=== PATIENT | female | born 1965 | race Caucasian/White ===

== ENCOUNTER → 2016-11-02 | Outpatient (CLI) | payer BC ==
[~2016-11-02] MED LIST: ASPIRIN E.C. 8181 MG PO; BRILINTA90 MG PO; DUO-KAPS1 CAP PO; FISH OIL 1000MG1 CAP PO; LIPITOR 10MG10 MG PO; LIPITOR20 MG PO; NORCO 325 MG-51 TAB PO
== END ==
LOC: MC.RAD 07:52
DX: Z12.31 Encounter for screening mammogram for malignant neoplasm of breast (principal); D24.2 Benign neoplasm of left breast; D24.1 Benign neoplasm of right breast

== ENCOUNTER 2017-03-15 08:13 | Day surgery (SDC) | payer BC ==
[2017-03-15] VITALS (345 sets, daily range): BP systolic 109–158; BP diastolic 66–91; PULSE 50–89; TEMP 97.9–98.4; O2SAT 94–100
[~2017-03-15] VITALS: Ht 154.9 cm; Wt 68.1 kg
[~2017-03-15 08:13] MED LIST changes: -ASPIRIN E.C. 8181 MG PO; -BRILINTA90 MG PO; -FISH OIL 1000MG1 CAP PO; -LIPITOR20 MG PO
[2017-03-15 08:49] LABS: HEMATOCRIT 41.3 % (37.0-47.0); HEMOGLOBIN 13.5 g/dl (12.5-16.0); MEAN CELL VOLUME 89 fl (80.0-100.0); MEAN CORPUSCULAR HEMOGLOBIN 29 pg (27.0-31.0); MEAN CORPUSCULAR HGB CONC 33 g/dl (33.0-37.0); MEAN PLATELET VOLUME 11.3 fl (7.4-10.4); PLATELET COUNT 247 K/mm3 (130-400); RED BLOOD COUNT 4.66 M/mm3 (4.10-5.30); REDCELL DISTRIBUTION WIDTH-CV 13.4 % (11.5-14.5); WHITE BLOOD COUNT 8.2 K/mm3 (4.8-10.8)
[2017-03-15 08:56] LABS: PROTHROMBIN TIME 10.8 SECONDS (9.7-12.8)
[2017-03-15] MEDS ORDERED: ASPIRIN E.C. 8181 MG PO (09:08)
[2017-03-15 09:13] LABS: CALCIUM 9.1 mg/dL (8.4-10.2); CREATININE, serum 0.57 mg/dL (0.52-1.25); POTASSIUM 4.1 mmol/L (3.4-5.0)
[2017-03-16] VITALS (173 sets, daily range): BP systolic 97–105; BP diastolic 53–57; PULSE 54–73; TEMP 97.8–98.1; O2SAT 95–100
[2017-03-16 06:03] LABS: HEMATOCRIT 38.7 % (37.0-47.0); HEMOGLOBIN 12.3 g/dl (12.5-16.0); MEAN CELL VOLUME 91 fl (80.0-100.0); MEAN CORPUSCULAR HEMOGLOBIN 29 pg (27.0-31.0); MEAN CORPUSCULAR HGB CONC 32 g/dl (33.0-37.0); MEAN PLATELET VOLUME 11.6 fl (7.4-10.4); PLATELET COUNT 206 K/mm3 (130-400); RED BLOOD COUNT 4.27 M/mm3 (4.10-5.30); REDCELL DISTRIBUTION WIDTH-CV 13.5 % (11.5-14.5); WHITE BLOOD COUNT 7.2 K/mm3 (4.8-10.8)
[2017-03-16 06:14] LABS: CREATININE, serum 0.63 mg/dL (0.52-1.25); POTASSIUM 4.3 mmol/L (3.4-5.0)
[2017-03-16 06:15] LABS: CALCIUM 8.8 mg/dL (8.4-10.2)
[2017-03-16] MEDS ORDERED: BRILINTA90 MG PO (11:45)
[2017-03-16] MEDS ORDERED: LIPITOR20 MG PO (11:46)
[2017-03-16] MEDS ORDERED: FISH OIL 1000MG1 CAP PO (11:52)
== END 2017-03-16 13:10 | disposition home or self-care (01) ==
LOC: COL.CAR 08:13 → IMCU 11:50 → COL.CAR 03-16 13:10
PROVIDERS: Internal Medicine Cardiovascular Disease; Internal Medicine Interventional Cardiology
DX: I25.10 Atherosclerotic heart disease of native coronary artery without angina pectoris (principal); I34.0 Nonrheumatic mitral (valve) insufficiency; R07.9 Chest pain, unspecified; R94.39 Abnormal result of other cardiovascular function study; R06.02 Shortness of breath
CPT/HCPCS: OP; C1725; C1769; C1874; C1887; C1894; C9600; J0583; J1644; J2250; J3010; Q9967

== ENCOUNTER 2017-05-24 15:59 | Outpatient (RCR) | payer BC ==
[~2017-05-24 15:59] MED LIST changes: +ASPIRIN E.C. 8181 MG PO; +BRILINTA90 MG PO; +FISH OIL 1000MG1 CAP PO; +LIPITOR20 MG PO
== END 2017-05-31 15:29 | disposition home or self-care (01) ==
LOC: COL.CR 15:59
DX: Z48.812 Encounter for surgical aftercare following surgery on the circulatory system (principal); Z95.5 Presence of coronary angioplasty implant and graft; I25.10 Atherosclerotic heart disease of native coronary artery without angina pectoris

== ENCOUNTER → 2017-08-14 | Outpatient (CLI) | payer BC | LOC: MHCPAIN 15:11 | DX: G89.29 Other chronic pain (principal); M47.812 Spondylosis without myelopathy or radiculopathy, cervical region; Z87.891 Personal history of nicotine dependence; Z79.82 Long term (current) use of aspirin | CPT/HCPCS: G0463 ==

== ENCOUNTER → 2017-11-15 | Outpatient (CLI) | payer BC | LOC: COL.PUL 11-11 08:00 | DX: R06.02 Shortness of breath (principal); R05 Cough; Z87.891 Personal history of nicotine dependence ==

== ENCOUNTER → 2017-12-06 | Outpatient (CLI) | payer BC | LOC: COL.PUL 10:00 | DX: R06.02 Shortness of breath (principal) ==

== ENCOUNTER → 2017-12-20 | Outpatient (CLI) | payer BC | LOC: COL.PUL 13:00 | DX: R06.02 Shortness of breath (principal); Z87.891 Personal history of nicotine dependence; Z98.82 Breast implant status | CPT/HCPCS: J7674 ==

== ENCOUNTER → 2018-02-07 | Outpatient (CLI) | payer BC | LOC: COL.RAD 08:54 | DX: M47.812 Spondylosis without myelopathy or radiculopathy, cervical region (principal); M50.30 Other cervical disc degeneration, unspecified cervical region ==